=== PATIENT | female | born 1990 | race Caucasian/White ===

== ENCOUNTER 2017-03-26 18:45 | Emergency (ER) | payer OTHER ==
[~2017-03-26] VITALS: Ht 152.4 cm; Wt 70.3 kg
--- NOTE | 2017-03-26 19:20 | NUR ---
URINE SAMPLE COLLECTED SENT TO LAB
[2017-03-26] MEDS ORDERED: ONDANSETRON 4 MG TAB.RAPDIS ONE (19:21)
[2017-03-26] MEDS ORDERED: FAMOTIDINE (20 MG) 20 MG TABLET ONE ×2 (19:21→21:05)
[2017-03-26] MEDS ORDERED: MAG HYDROX/AL HYDROX/SIMETH 30 ML UDC ONE (19:21)
--- NOTE | 2017-03-26 19:25 | NUR ---
CONTROLLED ATMOSPHERIC FURNACE BRAZER AT BEDSIDE FOR BLOOD DRAW
[2017-03-26 19:30] LABS: APPEARANCE,URINE Clear (CLEAR); BILIRUBIN,URINE Negative (NEGATIVE); BLOOD, URINE Trace-lysed Ery/uL (NEGATIVE); COLOR,URINE Yellow (YELLOW); KETONES,URINE Negative (NEGATIVE); LEUKOCYTE ESTERASE ,URINE Negative (NEGATIVE); NITRITE, URINE Negative (NEGATIVE); PROTEIN,URINE Negative (NEGATIVE); UGLUCOSE Negative (NEGATIVE); UROBILINOGEN,URINE 0.2 EU/dL (0.2)
[2017-03-26] MEDS ORDERED: ONDANSETRON 4 MG TAB.RAPDIS SL ONE (19:30)
[2017-03-26] MEDS ORDERED: MAG HYDROX/AL HYDROX/SIMETH 30 ML UDC PO ONE (19:30)
[2017-03-26] MEDS ORDERED: FAMOTIDINE (20 MG) 20 MG TABLET PO ONE ×2 (19:30→21:00)
[2017-03-26 19:32] LABS: BASOPHILS # (AUTO) 0.1 /CMM (0.0-0.2); BASOPHILS % (AUTO) 0.7 % (0.0-2.0); EOSINOPHILS # (AUTO) 0.1 /CMM (0.0-0.7); EOSINOPHILS % (AUTO) 0.6 % (0.0-6.0); HEMATOCRIT 43 % (33-45); HEMOGLOBIN 14.2 g/dL (11.5-14.8); LYMPHOCYTES # (AUTO) 2.3 /CMM (0.8-4.8); LYMPHOCYTES % (AUTO) 20.9 % (20.0-44.0); MEAN CORPUSCULAR HEMOGLOBIN 31 PG (26.0-33.0); MEAN CORPUSCULAR HGB CONC 33 g/dl (31.0-36.0); MEAN CORPUSCULAR VOLUME 93 fL (82-100); MONOCYTES # (AUTO) 0.6 /CMM (0.1-1.30); NEUTROPHILS # (AUTO) 8.1 /CMM (1.8-8.9); NEUTROPHILS % (AUTO) 72.8 % (43.0-81.0); PLATELET COUNT (AUTO) 281 /CMM (150-450); RDW COEFFICIENT OF VARIATION 12.9 (11.5-15.0); RED BLOOD CELL COUNT(AUTO) 4.65 MIL/uL (4.0-5.2); WHITE BLOOD COUNT (AUTO) 11.2 K/uL (4.3-11.0)
[2017-03-26 19:32] LABS: BACTERIA,URINE Rare /HPF (None Seen); RBC,URINE 0-2 /HPF (0-2); WBC,URINE 0-2 /HPF (0-3)
[2017-03-26 19:33] LABS: SQUAMOUS EPITHELIAL CELL,UR Few /HPF (None Seen)
[2017-03-26 19:44] LABS: CALCIUM, SERUM 9.2 mg/dL (8.5-10.1); CREATININE 0.8 mg/dL (0.6-1.3); POTASSIUM 4.2 mmol/L (3.5-5.1)
[2017-03-26 19:50] LABS: BILIRUBIN,TOTAL 0.3 mg/dL (0.2-1.0); TOTAL PROTEIN, SERUM 7.1 g/dL (6.4-8.2)
[2017-03-26] MEDS ORDERED: LIDOCAINE VISCOUS 2% UD 15 ML UDC MM ONE (21:00)
[2017-03-26] MEDS ORDERED: ACETAMINOPHEN ES 500 MG TABLET PO ONE (21:00)
[2017-03-26] MEDS ORDERED: LIDOCAINE VISCOUS 2% UD 15 ML UDC ONE (21:05)
[2017-03-26] MEDS ORDERED: ACETAMINOPHEN ES 500 MG TABLET ONE (21:05)
--- NOTE | 2017-03-26 21:13 | NUR ---
pt medicated as ordered.
[2017-03-26 21:56] VITALS: BP 116/72
--- NOTE | 2017-03-26 21:56 | NUR ---
Patient discharged to home in stable condition. Written and verbal after care instructions given. Patient verbalizes understanding of instruction. ambulatory with a steady gait
== END 2017-03-26 21:57 | disposition home or self-care (01) ==
LOC: ER 18:48
DX: K29.70 Gastritis, unspecified, without bleeding (principal); K21.9 Gastro-esophageal reflux disease without esophagitis
CPT/HCPCS: 36415; 80048-TC; 80076-TC; 81000-TC; 83690-TC; 84703-TC; 85025-TC; A4606; Q0162; Z7610